=== PATIENT | female | born 1930 | race Caucasian/White ===

== ENCOUNTER 2019-07-26 10:35 | Day surgery (SDC) | payer MEDICARE, BC ==
[2019-07-26] VITALS (11 sets, daily range): BP systolic 152–174; BP diastolic 63–84; PULSE 55–70; TEMP 97.9
[~2019-07-26] VITALS: Ht 160 cm; Wt 96.9 kg
[2019-07-26] MEDS ORDERED: TYLENOL 325MG325 MG PO (11:27)
[2019-07-26] MEDS ORDERED: ASPI325T6 PO (11:28)
[2019-07-26 11:29] LABS: HEMATOCRIT 38.5 % (37.0-47.0); HEMOGLOBIN 12.3 g/dl (12.5-16.0); MEAN CELL VOLUME 91 fl (80.0-100.0); MEAN CORPUSCULAR HEMOGLOBIN 29 pg (27.0-31.0); MEAN CORPUSCULAR HGB CONC 32 g/dl (33.0-37.0); MEAN PLATELET VOLUME 10.9 fl (7.4-10.4); PLATELET COUNT 227 K/mm3 (130-400); RED BLOOD COUNT 4.24 M/mm3 (4.10-5.30); REDCELL DISTRIBUTION WIDTH-CV 16.2 % (11.5-14.5)
[2019-07-26] MEDS ORDERED: DULCOLAX TAB5 MG PO (11:29)
[2019-07-26] MEDS ORDERED: FML 5 ML5 ML OP (11:30)
[2019-07-26] MEDS ORDERED: FOLIC ACID 11 MG/TA1 PO (11:36)
[2019-07-26 11:38] LABS: CALCIUM 9.2 mg/dL (8.4-10.2); CREATININE, serum 0.78 (0.52-1.25); POTASSIUM 3.3 mmol/L (3.4-5.0)
[2019-07-26] MEDS ORDERED: LASIX 20MG TABL20 MG PO (11:39)
[2019-07-26 11:40] LABS: PROTHROMBIN TIME 10.8 SECONDS (9.7-12.8)
[2019-07-26] MEDS ORDERED: NORCO 325 MG-51 TAB PO (11:40)
[2019-07-26] MEDS ORDERED: COZAAR 50MG50 MG/TAB PO (11:40)
[2019-07-26] MEDS ORDERED: LOTEMAX 10 ML10 ML OP (11:41)
[2019-07-26] MEDS ORDERED: ORENCIA250 MG IV (11:41)
[2019-07-26 11:43] LABS: PARTIAL THROMBOPLASTIN TIME 28.8 SECONDS (26.0-37.0)
[2019-07-26] MEDS ORDERED: METHOTREXA2.5 MG/TAB PO (11:44)
[2019-07-26] MEDS ORDERED: PRIL40 PO (11:44)
[2019-07-26] MEDS ORDERED: KLOR-CON 1010 MEQ PO (11:45)
[2019-07-26] MEDS ORDERED: DEEP SEA 45 ML45 ML NS (11:46)
[2019-07-26] MEDS ORDERED: PREDNISONE 5MG5 MG PO (11:46)
--- NOTE | 2019-07-26 12:46 | NUR ---
SEE MERGE FOR MEDICATION ADMINISTRATION TIMES AND INTRA AND POST SEDATION ASSESSMENTS.
--- NOTE | 2019-07-26 14:45 | NUR ---
Report from Cheryl DUDLEY. 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 Alert and oriented, denies pain and needs at this time. Right groin site CD&I, soft to palpation with pedal pulses palpable. VSS.
[2019-07-26] MEDS ORDERED: ALDACTONE 25MG25 M1 PO (15:14)
--- NOTE | 2019-07-26 18:45 | NUR ---
Ambulated to bathroom with cane and standby assist. INT discontinued intact. discharge instructions given and teaching done on right groin site. Transferred to private car by andrew
== END 2019-07-26 18:47 | disposition home or self-care (01) ==
LOC: COL.CAR 10:35
PROVIDERS: Internal Medicine Cardiovascular Disease
DX: I08.1 Rheumatic disorders of both mitral and tricuspid valves (principal); I20.9 Angina pectoris, unspecified; I10 Essential (primary) hypertension; G47.33 Obstructive sleep apnea (adult) (pediatric); K21.9 Gastro-esophageal reflux disease without esophagitis; D64.9 Anemia, unspecified; J45.909 Unspecified asthma, uncomplicated; R01.1 Cardiac murmur, unspecified; H35.30 Unspecified macular degeneration; G89.29 Other chronic pain; M54.5 Low back pain; M79.672 Pain in left foot; M06.9 Rheumatoid arthritis, unspecified; H18.51 Endothelial corneal dystrophy; Z86.718 Personal history of other venous thrombosis and embolism; Z79.82 Long term (current) use of aspirin; Z79.899 Other long term (current) drug therapy; Z88.5 Allergy status to narcotic agent; Z88.0 Allergy status to penicillin; Z82.49 Family history of ischemic heart disease and other diseases of the circulatory system; Z80.52 Family history of malignant neoplasm of bladder; Z80.8 Family history of malignant neoplasm of other organs or systems
CPT/HCPCS: J1644; J2250; J2704; J3010; Q9967